=== PATIENT | male | born 1955 | race Caucasian/White ===

== ENCOUNTER 2016-11-05 06:56 | Day surgery (SDC) | payer BC ==
[2016-11-05] MEDS ORDERED: Propofol 200 MG/20 ML SDV ONE (07:16)
[2016-11-05] MEDS ORDERED: fentaNYL 100 MCG/2 ML SDV ONE (07:16)
[2016-11-05] MEDS ORDERED: Midazolam 1 MG/ML 2 ML SDV ONE (07:16)
[2016-11-05] MEDS ORDERED: Sodium Chloride 0.9% 1,000 ML IV SCH (07:30)
[2016-11-05 09:21] VITALS: BP 134/86
--- NOTE | 2016-11-05 13:22 | OR ---
DATE OF PROCEDURE: 11/05/2016 PROCEDURE: Colonoscopy. FINDINGS: Transverse colon polyp, 5 mm, completely removed using cold biopsy forceps. COMPLICATIONS: None. 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 ANESTHESIA: MAC. PREOPERATIVE DIAGNOSIS: Screening colonoscopy. POSTOPERATIVE DIAGNOSIS: Screening colonoscopy. RISKS: Risks benefits, alternatives, and limitations, including, but not limited to infection, bleeding, and perforation were explained to the patient and wished to proceed. PROCEDURE IN DETAIL: The patient was placed in left lateral decubitus position. Digital rectal exam was performed without abnormality. The scope was introduced and advanced atraumatically to the ileocecal valve. The scope was brought back to the ascending, transverse, descending colon, and retroflexed. The aforementioned polyp was identified and completely removed using cold biopsy forceps. No other abnormalities were noted. No abnormalities on retroflexion. No old or new blood. No masses. No diverticulosis. The patient tolerated the procedure well. Jin Gutierrez MD /[id number]
== END 2016-11-05 09:40 | disposition home or self-care (01) ==
LOC: JP.SDS 06:56
PROVIDERS: ATTEND Surgery
PROC: 0DBL8ZX Excision of Transverse Colon, Via Natural or Artificial Opening Endoscopic, Diagnostic (ICD-10-PCS; principal; 2016-11-05)
DX: Z12.11 Encounter for screening for malignant neoplasm of colon (principal); D12.3 Benign neoplasm of transverse colon
CPT/HCPCS: 45380; J2250; J2704; J3010; J7040; 88305

== ENCOUNTER 2020-03-27 07:11 | Day surgery (SDC) | payer BC ==
[2020-03-27] MEDS ORDERED: Sodium Chloride 0.9% 1,000 ML IV SCH (07:30)
[2020-03-27] MEDS ORDERED: Midazolam 1 MG/ML 2 ML SDV ONE (08:19)
[2020-03-27] MEDS ORDERED: fentaNYL 100 MCG/2 ML SDV ONE (08:19)
[2020-03-27] MEDS ORDERED: Propofol 200 MG/20 ML SDV ONE (08:19)
[2020-03-27 10:33] VITALS: BP 152/90; PULSE 45
--- NOTE | 2020-03-27 12:26 | OR ---
DATE OF PROCEDURE: 03/27/2020 SURGEON: Jin Gutierrez MD PROCEDURE: Colonoscopy. FINDINGS: Descending colon polyp, approximately 5 mm, completely removed using cold biopsy forceps. COMPLICATIONS: None. 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 ANESTHESIA: MAC. PREOPERATIVE DIAGNOSIS: Screening colonoscopy/history of colon polyps. POSTOPERATIVE DIAGNOSIS: Screening colonoscopy/history of colon polyps. RISKS: Risks, benefits, alternatives, and limitations including, but not limited to infection, bleeding, and perforation were explained to the patient, who wished to proceed. PROCEDURE IN DETAIL: The patient was placed in a left lateral decubitus position. Digital rectal exam was performed without abnormality. Scope was introduced and advanced atraumatically to the ileocecal valve. A photo was taken of this. Scope was brought back through the ascending, transverse, descending colon, and retroflexed. No evidence of old or new blood. No masses. No other polyps except for the aforementioned polyp, which was completely removed and no abnormal bleeding was noted after removal. No abnormalities on retroflexion. The patient tolerated the procedure well. Greater than 8 minutes was spent in removing the scope. Jin Gutierrez MD /[id number]
== END 2020-03-27 10:23 | disposition home or self-care (01) ==
LOC: JP.SDS 07:11
PROVIDERS: ATTEND Surgery
DX: Z12.11 Encounter for screening for malignant neoplasm of colon (principal); D12.4 Benign neoplasm of descending colon; F17.220 Nicotine dependence, chewing tobacco, uncomplicated; Z86.010 Personal history of colon polyps; Z98.890 Other specified postprocedural states
CPT/HCPCS: 45380; 88305; J2250; J2704; J3010; J7030